=== PATIENT | female | born 1955 | race Caucasian/White ===

== ENCOUNTER 2016-04-30 20:47 | Emergency (ER) | payer OTHER ==
[~2016-04-30] VITALS: Ht 152.4 cm; Wt 66.5 kg
[2016-04-30 20:53] VITALS: Ht 152.4 cm; Wt 66.5 kg
[2016-04-30] MEDS ORDERED: LEVALBUTEROL (NEB) 1.25 MG/0.5 ML AMP INH STA (21:26)
[2016-04-30] MEDS ORDERED: IPRATROPIUM (NEB) 0.5 MG/2.5 ML AMP NEB STA (21:26)
[2016-04-30] MEDS ORDERED: ACETAMINOPHEN 500 MG TAB PO STA (21:29)
[2016-04-30] MEDS ORDERED: SOD CHLORIDE 0.9% 1,000 ML IV ONE (21:30)
--- NOTE | 2016-04-30 22:00 | ERD ---
ER Documentation Chief Complaint Date/Time DATE: 04/30/16 TIME: 21:53 Chief Complaint cough x 5 days, w/ sob, hx-asthma HPI This is a 61-year-old female who presents to the emergency department today complaining shortness of breath for 2 weeks and of a cough for the past 5 days. Patient states she went to [facility] was given 2 antibiotics and also an inhaler but it is not helping. Patient takes she occasionally smokes cigarettes. Patient states that she does have a history of anxiety. Denies any fevers or chills. States she was told she had laryngitis. States she is homeless. ROS All systems reviewed and are negative except as per history of present illness. Medications Home Meds Active Scripts Azithromycin* (Zithromax*) 250 Mg Tablet, 250 MG PO .ZPACK DIRECTED, #6 TAB TAKE 500 MG (2 TABS) THE FIRST DAY THEN 250 MG (1 TAB) DAYS 2-5 Prov:MARYAM ANTONIO PA-C 05/01/16 Albuterol Sulfate* (Proair HFA*) 8.5 Gm Hfa.aer.ad, 2 PUFF INH Q4, #1 INHALER Prov:MARYAM ANTONIO PA-C 05/01/16 Cetirizine Hcl* (Zyrtec*) 10 Mg Capsule, 10 MG PO DAILY, #14 TAB.CHEW Prov:MARYAM ANTONIO PA-C 05/01/16 Prednisone* (Prednisone*) 20 Mg Tab, 40 MG PO DAILY for 4 Days, TAB Prov:MARYAM ANTONIO PA-C 05/01/16 Allergies Allergies: Coded Allergies: No Known Allergy (Unverified , 04/30/16) PMhx/Soc Medical and Surgical Hx: pt denies Medical Hx History of Surgery: Yes (LEFT ARM, LEFT, KNEE, BRIELLE HIPS, TORM MENICSCUS, RIB SX.) Anesthesia Reaction: No Hx Neurological Disorder: No Hx Respiratory Disorders: No Hx Cardiac Disorders: No Hx Psychiatric Problems: No Hx Miscellaneous Medical Probl: No Hx Alcohol Use: No Hx Substance Use: No Hx Tobacco Use: No Smoking Status: Never smoker Physical Exam Vitals Vital Signs Date Time Temp Pulse Resp B/P Pulse Ox O2 Delivery O2 Flow Rate FiO2 04/30/16 21:57 106 18 98 21 04/30/16 20:53 100.1 122 20 109/65 99 Physical Exam Const: Sitting in wheelchair, coughing, Head: Atraumatic Eyes: Normal Conjunctiva ENT: Normal External Ears, Nose and Mouth. Neck: Full range of motion..~ No meningismus. Resp: Clear to auscultation bilaterally. No absent breath sounds. No wheezing. Cardio: Tachycardic and rhythm, no murmurs Abd: Soft, non tender, non distended. Normal bowel sounds Skin: No petechiae or rashes Back: No midline or flank tenderness Ext: No cyanosis, or edema. No calf tenderness. Neur: Awake and alert Psych: Normal Mood and Affect Result Diagram: 04/30/16215104/30/162151 Results 24 hrs Laboratory Tests Test 04/30/16 21:52 Alanine Aminotransferase (ALT/SGPT) 43IU/L Albumin 3.9g/dl Albumin/Globulin Ratio 0.79 Alkaline Phosphatase 109IU/L Anion Gap 22 Aspartate Amino Transf (AST/SGOT) 208IU/L Basophils # 0.010^3/ul Basophils % 1.2% Blood Morphology Comment Blood Urea Nitrogen 10mg/dl Calcium Level 10.2mg/dl Carbon Dioxide Level 25mmol/L Chloride Level 106mmol/L Creatinine 0.65mg/dl Differential Comment AUTO w/SCAN Direct Bilirubin 0.00mg/dl Eosinophils # 0.010^3/ul Eosinophils % 0.4% Globulin 4.90g/dl Glucose Level 100mg/dl Hematocrit 33.9% Hemoglobin 11.6g/dl Indirect Bilirubin 0.2mg/dl Lymphocytes # 1.410^3/ul Lymphocytes % 40.3% Mean Corpuscular Hemoglobin 30.7pg Mean Corpuscular Hemoglobin Concent 34.3g/dl Mean Corpuscular Volume 89.6fl Mean Platelet Volume 7.8fl Monocytes # 0.410^3/ul Monocytes % 10.9% Neutrophils # 1.610^3/ul Neutrophils % 47.2% Nucleated Red Blood Cells # 0.010^3/ul Nucleated Red Blood Cells % 0.0/100WBC Platelet Count 9610^3/UL Platelet Estimate PLT APPEAR DECREASED Potassium Level 3.3mmol/L Red Blood Count 3.7910^6/ul Red Cell Distribution Width 16.7% Sodium Level 150mmol/L Total Bilirubin 0.2mg/dl Total Protein 8.8g/dl Troponin I < 0.012ng/ml White Blood Count 3.410^3/ul Current Medications Medications (Trade) Dose Ordered Sig/El Route PRN Reason Start Time Stop Time Status Last Admin Dose Admin Ipratropium [place] (Atrovent 0.02% (Neb)) 0.5 mg ONCE STAT NEB 04/30/16 21:26 04/30/16 21:29 DC 04/30/16 21:57 Levalbuterol (Xopenex Neb) 1.25 mg ONCE STAT INH 04/30/16 21:26 04/30/16 21:29 DC 04/30/16 21:57 Acetaminophen 500 mg 500 mg ONCE STAT PO 04/30/16 21:29 04/30/16 21:32 DC 04/30/16 21:58 Sodium Chloride (NS) 1,000 ml @ 1,000 mls/hr Q1H ONCE IV 04/30/16 21:30 04/30/16 22:29 DC 04/30/16 21:58 IV Flush 10 ml 10 ml STK-MED ONCE .ROUTE 04/30/16 23:14 04/30/16 23:15 DC 04/30/16 23:31 Sodium Chloride 100 ml @ ud STK-MED ONCE .ROUTE 04/30/16 23:14 04/30/16 23:15 DC 04/30/16 23:31 Iohexol (Omnipaque) 100 ml @ ud STK-MED ONCE .ROUTE 04/30/16 23:14 04/30/16 23:15 DC 04/30/16 23:31 DIAGNOSTIC IMAGING REPORT Patient: DANIE [facility]NE : 1955 Age: 61 Sex: F MR #: [id number] DOS: 04/30/162125 Ordering MD: MARYAM ANTONIO PA-C Location: [facility] Room/Bed: PROCEDURE: XR Chest. CLINICAL INDICATION: Asthma. TECHNIQUE: Single frontal view of the chest was obtained COMPARISON: None FINDINGS: The heart and mediastinum are within normal limits. Small faint nodules at left apex and recommend CT examination. Differential considerations include developing neoplasm. Lungs are otherwise clear. There is no pleural effusion or pneumothorax. Demineralization limits evaluation of fine osseous detail IMPRESSION: 1. Small density at the left apex and recommend CT correlation. 2. Differential considerations include neoplasm. 3. Otherwise, no acute process in the chest. RPTAT: [facility] Physician Leslie Date Time Electronically viewed and signed by Physician Leslie on 04/30/2016 22:40 RS/ CC: MARYAM ANTONIO PA-C DIAGNOSTIC IMAGING REPORT Patient: DANIE WAYNE : 1955 Age: 61 Sex: F MR #: [id number] DOS: 04/30/16 2248 Ordering MD: MARYAM ANTONIO PA-C Location: [facility] Room/Bed: PROCEDURE: CT chest with contrast/PE protocol CLINICAL INDICATION: Shortness of breath TECHNIQUE: The study was performed from the thoracic inlet to the upper abdomen with the use of 90 cc of Omnipaque 350 intravenous contrast material per PE protocol. Coronal/sagittal reformatted images and coronal MIP images were generated. The images were reviewed on a PACS workstation. CTDIvol = 21.94 mGy and DLP= 399.80 mGycm. COMPARISON: Chest x-ray 04/30/2016 FINDINGS: Lungs, airway and pleura: The trachea and bronchi are patent as well as normal in caliber. The lungs are clear of infiltrates, masses or nodules. The abnormality on the chest x-ray in the left upper lobe is therefore artifactual believed to be related to a summation shadow. There is no evidence of emphysema The pleural spaces are clear, without effusions. Mediastinum, wanda and cardiovascular: The heart is normal in size. There is no evidence for pericardial effusion. The thoracic aorta is normal in caliber and without evidence of dissection. Note is made of a congenitally aberrant right subclavian artery. There are no filling defects within the pulmonary arteries to suggest emboli. There is no evidence for hilar mass and no mediastinal adenopathy is present. A small sliding hiatal hernia is present. Osseous structures and musculoskeletal findings: There is preservation of bone architecture and mineralization with no evidence for acute fracture, lytic or blastic lesion. Mild concave appearance of the superior T12 levels consistent with a chronic compression deformity of approximately 25%. A superior L2 endplate Schmorl's node is present No chest wall abnormalities are present. The axillary regions are unremarkable. Visualized upper abdomen: Nodular contour to the liver is consistent with cirrhosis with portal hypertension, the spleen estimated at 15 cm. Some varices in the left upper quadrant of the abdomen are noted. Cholelithiasis in the visualize gallbladder is present. Some renal cortex scarring on the left is seen. The adrenal glands are normal bilaterally. RPTAT:HJJR IMPRESSION: 1. No evidence of pulmonary embolism. 2. No left apical nodular abnormality as suggested on the chest x-ray, therefore the findings on plain film are artifactual likely related to a summation shadow. 3. Small hiatal hernia. 4. Congenital aberrant right subclavian artery. 5. Nodular contour to the liver consistent with cirrhosis with splenomegaly compatible with portal hypertension. 6. Chronic superior T12 compression deformity. 7. Cholelithiasis. Physician Oracio Date Time Electronically viewed and signed by Physician Oracio on 04/30/2016 23:58 JR/ CC: MARYAM ANTONIO PA-C Procedures/[facility] This is a 61-year-old female who presents to the emergency department today complaining of shortness of breath for 2 weeks and cough for the past 5 days. Patient states it initially resolved and then returned. Patient was tachycardic here in the emergency department. Her oxygen saturation is 97% and her temperature was 100.1. I did obtain laboratory work as well as a chest x-ray and EKG given the patient's stated complaint and age. Laboratory work shows a decreased white blood cell count. She is mildly anemic. Her platelets are decreased her sodium is mildly elevated and her past potassium is mildly decreased. Patient's glucose is normal limits. Her AST is elevated. Pulmonary is negative. Chest x-ray shows small density at the left apex of small faint nodules. Differential considerations include neoplasm. Lungs otherwise clear. There is no pleural effusion or pneumothorax. EKG read and interpreted by Dr. Miller: Rate [address] elevation. No QT prolongation. Low suspicion for acute ND, PE, pericarditis After receiving results of a chest x-ray CT PA was obtained shows no evidence of pulmonary embolism. There is no left apical nodule abnormality as suggested on chest x-ray therefore finding on plain film artifactual likely related to summation shadow. There is a small hiatal hernia. There is congenital. Right subclavian artery. There is nodule contoured to the liver consistent with cirrhosis with splenomegaly compatible with portal hypertension. There is chronic. T12 compression deformity. There is cholelithiasis. Patient's symptoms at this time of her cough most consistent with bronchitis.I have explained all the CT scan and results of the patient. I have reassured the patient that there is nothing that needs to be done emergently at this time. Patient was aware that she had cirrhosis as well as gallstones. Patient will be given a prescription restriction for azithromycin, prednisone, Provera and Zyrtec is was also given a list of resources as she is homeless. At this time the patient is stable for discharge and outpatient management. Patient should follow up with their PCP in the next 1-2 days. They may return to the emergency department sooner for any persistent or worsening of symptoms. Patient understood and agreed with the plan. Discussed the patient with Dr. Crowley as well as the labs and he feels the patient is stable for discharge and outpatient management. Departure Diagnosis: Primary Impression: Cough Condition: MARYAM Carrillo PA-C Apr 30, 2016 22:00
[2016-04-30 22:19] LABS: ALBUMIN 3.9 g/dl (3.3-4.9); CHLORIDE 106 mmol/L (97-110); SODIUM 150 mmol/L (135-144)
[2016-04-30 22:20] LABS: BASOPHILS % 1.2 % (0.0-2.0); EOSINOPHILS % 0.4 % (0.0-7.0); HEMATOCRIT 33.9 % (37.0-47.0); HEMOGLOBIN 11.6 g/dl (12.0-16.0); LYMPHOCYTES # 1.4 10^3/ul (0.8-2.9); LYMPHOCYTES % 40.3 % (15.0-51.0); MEAN CORPUSCULAR HEMOGLOBIN 30.7 pg (29.0-33.0); MEAN CORPUSCULAR HGB CONC 34.3 g/dl (32.0-37.0); MEAN CORPUSCULAR VOLUME 89.6 fl (82.0-101.0); MEAN PLATELET VOLUME 7.8 fl (7.4-10.4); MONOCYTE # 0.4 10^3/ul (0.3-0.9); MONOCYTES % 10.9 % (0.0-11.0); NEUTROPHIL # 1.6 10^3/ul (1.6-7.5); NEUTROPHILS % 47.2 % (39.0-77.0); PLATELET COUNT 96 10^3/UL (140-440); POTASSIUM 3.3 mmol/L (3.5-5.1); RED BLOOD COUNT 3.79 10^6/ul (4.20-5.40); RED CELL DISTRIBUTION WIDTH 16.7 % (11.5-14.5); UNCORRECTED WBC 3.4 10^3/ul (4.8-10.8); WHITE BLOOD COUNT 3.4 10^3/ul (4.8-10.8)
[2016-04-30 22:22] LABS: ALBUMIN/GLOBULIN RATIO 0.79; ALKALINE PHOSPHATASE 109 IU/L (42-121); ANION GAP 22 (8-16); ASPARTATE AMINO TRANSFERASE 208 IU/L (15-46); BILIRUBIN,INDIRECT 0.2 mg/dl (0-1.1); BILIRUBIN,TOTAL 0.2 mg/dl (0.2-1.3); BLOOD UREA NITROGEN 10 mg/dl (7-20); CALCIUM 10.2 mg/dl (8.4-10.2); CARBON DIOXIDE 25 mmol/L (21-31); CONDITION 1; CREATININE 0.65 mg/dl (0.44-1.00); GLUCOSE 100 mg/dl (70-220); LH ANALYZER COMMENTS 1; TOTAL PROTEIN 8.8 g/dl (6.1-8.1)
[2016-04-30 22:23] LABS: ALANINE AMINOTRANSFERASE 43 IU/L (13-69)
--- NOTE | 2016-04-30 22:40 | RADRPT ---
PROCEDURE: XR Chest. CLINICAL INDICATION: Asthma. TECHNIQUE: Single frontal view of the chest was obtained COMPARISON: None FINDINGS: The heart and mediastinum are within normal limits. Small faint nodules at left apex and recommend CT examination. Differential considerations include developing neoplasm. Lungs are otherwise clear. There is no pleural effusion or pneumothorax. Demineralization limits evaluation of fine osseous d etail IMPRESSION: 1. Small density at the left apex and recommend CT correlation. 2. Differential considerations include neoplasm. 3. Otherwise, no acute process in the chest. RPTAT: [facility] Physician Leslie Date Time Electronically viewed and signed by Physician Leslie on 04/30/2016 22:40 RS/
[2016-04-30 22:43] LABS: PLATELET ESTIMATE PLT APPEAR DECREASED; TROPONIN-I < 0.012 ng/ml (0.00-0.12)
[2016-04-30] MEDS ORDERED: IOHEXOL 100 ML ONE (23:14)
[2016-04-30] MEDS ORDERED: SOD CHLORIDE 0.9% 100 ML ONE (23:14)
--- NOTE | 2016-04-30 23:58 | RADRPT ---
PROCEDURE: CT chest with contrast/PE protocol CLINICAL INDICATION: Shortness of breath TECHNIQUE: The study was performed from the thoracic inlet to the upper abdomen with the use of 90 cc of Omnipaque 350 intravenous contrast material per PE protocol. Coronal/sagittal reformatted nora ges and coronal MIP images were generated. The images were reviewed on a PACS workstation. CTDIvol = 21.94 mGy and DLP= 399.80 mGycm. COMPARISON: Chest x-ray 04/30/2016 FINDINGS: Lungs, airway and pleura: The trachea and bronchi are patent as well as normal in caliber. The yariel gs are clear of infiltrates, masses or nodules. The abnormality on the chest x-ray in the left upper lobe is therefore artifactual believed to be related to a summation shadow. There is no evidence o f emphysema The pleural spaces are clear, without effusions. Mediastinum, wanda and cardiovascular: The heart is normal in size. There is no evidence for perica rdial effusion. The thoracic aorta is normal in caliber and without evidence of dissection. Note is made of a congenitally aberrant right subclavian artery. There are no filling defects within the pu lmonary arteries to suggest emboli. There is no evidence for hilar mass and no mediastinal adenopath y is present. A small sliding hiatal hernia is present. Osseous structures and musculoskeletal findings: There is preservation of bone architecture and min eralization with no evidence for acute fracture, lytic or blastic lesion. Mild concave appearance of the superior T12 levels consistent with a chronic compression deformity of approximately 25%. A cintron perior L2 endplate Schmorl's node is present No chest wall abnormalities are present. The axillary regions are unremarkable. Visualized upper abdomen: Nodular contour to the liver is consistent with cirrhosis with portal hyp ertension, the spleen estimated at 15 cm. Some varices in the left upper quadrant of the abdomen ar e noted. Cholelithiasis in the visualize gallbladder is present. Some renal cortex scarring on the left is seen. The adrenal glands are normal bilaterally. RPTAT:HJJR IMPRESSION: 1. No evidence of pulmonary embolism. 2. No left apical nodular abnormality as suggested on the chest x-ray, therefore the findings on pl ain film are artifactual likely related to a summation shadow. 3. Small hiatal hernia. 4. Congenital aberrant right subclavian artery. 5. Nodular contour to the liver consistent with cirrhosis with splenomegaly compatible with portal hypertension. 6. Chronic superior T12 compression deformity. 7. Cholelithiasis. Gustavo Fish Physician Date Time Electronically viewed and signed by Gustavo Fish Physician on 04/30/2016 23:58 JR/
[2016-05-01] MEDS ORDERED: PRED20TA PO (00:27)
[2016-05-01] MEDS ORDERED: CETI10CA PO (00:27)
[2016-05-01] MEDS ORDERED: ALBU8.5H3 INH (00:27)
[2016-05-01] MEDS ORDERED: AZIT250T94 PO (00:28)
[2016-05-01 00:38] VITALS: BP 132/75; PULSE 97; RESP 16; TEMP 98.2
== END 2016-05-01 00:40 | disposition home or self-care (01) ==
LOC: FTE 20:47
DX: R05 Cough (principal); J45.909 Unspecified asthma, uncomplicated
CPT/HCPCS: 71010; 71275; 80053; 84484; 85025; 94664; 96360; J7030; Q9967; Z7502; Z7610; 93005